=== PATIENT | male | born 1955 | race Caucasian/White ===

== ENCOUNTER → 2024-05-16 | Outpatient (CLI) | payer MEDICARE ==
--- NOTE | 2024-06-08 12:05 | MR ---
EXAMINATION TYPE: MR Prostate wo/w con DATE OF EXAM: 05/30/2024 1:37 PM COMPARISON: None. CLINICAL INDICATION: Male, 68 years old with history of R97.20 elevated PSA; Elevated PSA. TECHNIQUE: Multi-planar, multi-sequence imaging of the pelvis is performed prior to and following the uncomplicated administration of bolus intravenous gadolinium. CONTRAST: 11 Gadavist Interpretive Criteria: PI-RADS v2.1 SERUM PSA: 04-11-24 : 5.81 , 09-21-23 4.82 SURGICAL PATHOLOGY: No data available. FINDINGS: Prostatic dimensions: 4.1 x 4.8 x 3.4 cm. "Bullet" Volume:43.79 (PSA density=0.13 ng/mL/mL) CENTRAL GLAND (Central and Transition Zones/CZ+TZ) PERIPHERAL ZONE (PZ): Multiple bilateral, heterogenous appearing hypertrophic stromal nodules. Median lobe hypertrophy with protrusion into the base of the bladder. Left hip arthroplasty limits evaluation diffusion-weighted imaging. There is a area of prior DWI low ADC signal measuring 12 x 10 mm in the right mid gland ext ending to the anterior right peripheral zone. PI-RADS 4) Bilateral linear, indistinct wedgelike areas of low ADC, and low T2 signal, SEMINAL VESICLES (SV): Symmetric and unremarkable. PERIPROSTATIC TISSUES: Unremarkable. LYMPH NODES: No enlarged pelvic lymph node. REMAINING PELVIS: Bladder wall is within normal limits given distention. No abnormal free or organized intrapelvic fluid collection. No pathologic bowel dilation or mural thickening. Colonic diverticula are present. No hernia visualized OSSEOUS STRUCTURES: No suspicious osseous abnormality. IMPRESSION: Limited evaluation due to left hip arthroplasty with magnetic susceptibility artifact affecting the d iffusion-weighted sequences.. PI-RADS 4 lesion may be present in the right anterior mid gland periphe ral zone/central gland versus extruded BPH nodule. This area measures 12 x 10 mm.
== END | disposition home or self-care (01) ==
LOC: RADMRIMAIN 06:23
PROVIDERS: ATTEND Urology
DX: R97.20 Elevated prostate specific antigen [PSA] (principal); Z96.642 Presence of left artificial hip joint
CPT/HCPCS: 72197; A9585

== ENCOUNTER → 2024-06-21 | Outpatient (CLI) | payer MEDICARE ==
[2024-06-21 15:13] LABS: Basophils # (A) 0.05 X 10*3/uL (0.00-0.10); Basophils % (A) 0.6 %; Calcium 9.2 mg/dL (8.7-10.3); Carbon Dioxide 22.2 mmol/L (21.6-31.8); Chloride 108 mmol/L (96-109); Eosinophils # (A) 0.16 X 10*3/uL (0.04-0.35); Glucose 98 mg/dL (70-110); HCT 42.2 % (39.6-50.0); HGB 14.6 g/dL (13.0-17.0); Lymphocytes # (A) 2.11 X 10*3/uL (0.90-5.00); Lymphocytes % (A) 26.4 %; MCH 33.1 pg (27.0-32.0); MCHC 34.6 g/dL (32.0-37.0); MCV 95.7 FL (80.0-97.0); Mean Platelet Volume 9.3 FL (9.5-12.2); Monocytes # (A) 0.64 X 10*3/uL (0.20-1.00); NRBC Per 100 WBC 0 X 10*3/uL (0.00-0.01); Neutrophils # (A) 4.99 X 10*3/uL (1.80-7.70); Neutrophils % (A) 62.6 %; Platelet Count 301 X 10*3/uL (140-440); Potassium 5.5 mmol/L (3.5-5.5); RBC 4.41 X 10*6/uL (4.40-5.60); RDW 11.7 % (11.5-14.5); Sodium 141 mmol/L (135-145); WBC 7.98 X 10*3/uL (4.50-10.00)
[2024-06-21 16:21] LABS: Appearance,Urine Clear (Clear); Bilirubin,Urine Negative (Negative); Blood,Urine Negative (Negative); Color,Urine Yellow (Yellow); Ketones,Urine Negative (Negative); Nitrite,Urine Negative (Negative); PH, Urine 6.5; Specific Gravity,Urine 1.016 (1.001-1.030); Urobilinogen,Urine 0.2 E.U./DL
== END | disposition home or self-care (01) ==
LOC: LABWHC1 11:53
PROVIDERS: ATTEND Urology
DX: R97.20 Elevated prostate specific antigen [PSA] (principal); Z01.818 Encounter for other preprocedural examination
CPT/HCPCS: 36415; 80048; 81003; 85025; 87086

== ENCOUNTER 2024-06-28 13:12 | Day surgery (SDC) | payer MEDICARE ==
[~2024-06-28 13:12] MED LIST: LACTATED RINGERS 1,000 ML IV SCH
--- NOTE | 2024-06-28 14:09 | P.HPIHPCON ---
History of Present Illness H&P Date: 06/28/24 Chief Complaint: Elevated PSA This is a 68-year-old male with history of elevated PSA, underwent a prostate MRI that showed evidence of a PI-RADS 4 lesion along the right mid gland, discussed with him given this finding I do recommend proceeding with an MRI fusion biopsy of the prostate, aware of the risk which includes but not limited to bleeding, infection. He understood all the risk and agreed to proceed Consent for Procedure: I have explained the operation/procedure to the patient, including the risks, benefits, side effects, alternative therapies (including not receiving the proposed treatment or service), the likelihood of the patient achieving his/her goals, and potential recuperation problems for the procedure/sedation/analgesia, as well as any blood products, if indicated. I also explained to the patient the risks, benefits and side effects of the alternatives, as well as the risks related to not receiving the proposed procedure, care, treatment, or services. Past Medical History Past Medical History: Hyperlipidemia, Neurologic Disorder, Osteoarthritis (OA), Thyroid Disorder Additional Past Medical History / Comment(s): bad back L2-5. bone spurd, nerve pain. PSA elevated, MRI suspicious. borderline diabetes - watches diet BS affected by thyroid per pt can go up or down. History of Any Multi-Drug Resistant Organisms: None Reported Past Surgical History: Joint Replacement Additional Past Surgical History / Comment(s): orif left hip. total left hip, steroid inj to back. Past Anesthesia/Blood Transfusion Reactions: No Reported Reaction Additional Past Anesthesia/Blood Transfusion Reaction / Comment(s): no blood transfusions Smoking Status: Former smoker - Past Family History Father Additional Family Medical History / Comment(s): cirrohsis r/t blood transfusions. BPH Mother Family Medical History: Cancer, Pulmonary Embolus Additional Family Medical History / Comment(s): breast cancer Son(s) Additional Family Medical History / Comment(s): kidney issues from bad root canal. Sister(s) Additional Family Medical History / Comment(s): immune deficiencies- Medications and Allergies Home Medications Medication Instructions Recorded Confirmed Type Acetaminophen [Tylenol Arthritis] 650 mg PO DIRECTED PRN 06/23/24 06/23/24 History Atorvastatin [Lipitor] 40 mg PO HS 06/23/24 06/23/24 History Cbg Gummie 5mg 1 tab PO DIRECTED PRN 06/23/24 06/23/24 History Ciprofloxacin HCl [Cipro] 500 mg PO BID 06/23/24 06/23/24 History Gabapentin [Neurontin] 300 mg PO BID 06/23/24 06/23/24 History HYDROcodone/APAP 7.5-325MG [[place] 1 tab PO Q8H PRN 06/23/24 06/23/24 History 7.5-325] Ibuprofen 800 mg PO Q8H 06/23/24 06/23/24 History Levothyroxine Sodium [Synthroid] 125 mcg PO DAILY 06/23/24 06/23/24 History Allergies Allergy/AdvReac Type Severity Reaction Status Date / Time No Known Allergies Allergy Verified 06/23/24 13:05 Surgical - Exam - General no distress, no pain - Eyes normal ocular movement, no pale - ENT normal nares, normal mucosa - Respiratory normal expansion, normal respiratory effort - Abdomen Abdomen: soft, non tender Assessment and Plan Assessment: OR for MRI fusion biopsy of the prostate
[2024-06-28] MEDS: IV FLUID CONTINUATION 1,000 ML IV ONE (15:17)
[2024-06-28 15:23] VITALS: TEMP 97.1
[2024-06-28 15:31] LABS: Glucose,Whole Blood 90 mg/dL (70-110)
[2024-06-28] MEDS: GENTAMICIN 40 MG/ML 2 ML VIAL IM PRN (15:34)
[2024-06-28] MEDS ORDERED: PHENYLEPHRINE-0.9% NACL SYG 1,000 MCG/10 ML SYRINGE ONE (16:17)
[2024-06-28] MEDS ORDERED: LIDOCAINE 1% INJ 10MG/ML (20 ML MDV) ONE (16:17)
[2024-06-28] MEDS ORDERED: PROPOFOL 10 MG/ML 20 ML VIAL IV ONE (16:17)
--- NOTE | 2024-06-28 16:46 | P.OP ---
Date of Procedure: 06/28/24 Preoperative Diagnosis: Elevated PSA Postoperative Diagnosis: Same Procedure(s) Performed: MRI fusion biopsy of the prostate Anesthesia: MAC Surgeon: Von Medrano Estimated Blood Loss (ml): 1 Pathology: other (Prostate biopsies) Condition: stable Disposition: PACU Indications for Procedure: This is a 68-year-old male with history of elevated PSA, underwent a prostate MRI that showed evidence of a PI-RADS 4 lesion along the right mid gland, discussed with him given this finding I do recommend proceeding with an MRI fusion biopsy of the prostate, aware of the risk which includes but not limited to bleeding, infection. He understood all the risk and agreed to proceed Description of Procedure: The patient was taken to the operating room and placed in the left lateral decubitus position. The [employer] transrectal ultrasound probe was placed intra rectally. It was then placed within the stand of the [employer] MRI/TRUS Fusion for Prostate Biopsy system. The prostate was imaged in both the axial and sagittal planes. Using the Biopsy gun, 4 biopsies were obtained from the target lesion, there were was one lesions, . The remaining 12 biopsies of the peripheral zone were obtained utilizing a standard template. Once the procedure was completed, the ultrasound probe was removed. The patient tolerated the procedure well was taken to the recovery room stable condition
[2024-06-28 17:00] VITALS: PULSE 65; RESP 17
[2024-06-28 17:12] VITALS: BP 106/63
== END 2024-06-28 17:34 | disposition home or self-care (01) ==
LOC: OR 13:12
PROVIDERS: ATTEND Urology
DX: R97.20 Elevated prostate specific antigen [PSA]
CPT/HCPCS: 88305

== ENCOUNTER → 2024-08-25 | Outpatient (CLI) | payer MEDICARE ==
[2024-08-25 16:00] LABS: Basophils # (A) 0.03 X 10*3/uL (0.00-0.10); Basophils % (A) 0.4 %; Eosinophils # (A) 0.27 X 10*3/uL (0.04-0.35); Eosinophils % (A) 3.6 %; HCT 41.9 % (39.6-50.0); HGB 14.5 g/dL (13.0-17.0); Lymphocytes % (A) 29.6 %; MCH 33.3 pg (27.0-32.0); MCHC 34.6 g/dL (32.0-37.0); MCV 96.3 FL (80.0-97.0); Mean Platelet Volume 9.5 FL (9.5-12.2); Monocytes # (A) 0.78 X 10*3/uL (0.20-1.00); Monocytes % (A) 10.5 %; NRBC Per 100 WBC 0 X 10*3/uL (0.00-0.01); Neutrophils # (A) 4.13 X 10*3/uL (1.80-7.70); Neutrophils % (A) 55.6 %; Platelet Count 291 X 10*3/uL (140-440); RBC 4.35 X 10*6/uL (4.40-5.60); RDW 11.7 % (11.5-14.5); WBC 7.43 X 10*3/uL (4.50-10.00)
[2024-08-25 16:22] LABS: BUN/Creat Ratio 10.09 Ratio (12.00-20.00); Blood Urea Nitrogen 11.1 mg/dL (9.0-27.0); Glucose 85 mg/dL (70-110)
[2024-08-25 16:23] LABS: Calcium 8.9 mg/dL (8.7-10.3); Carbon Dioxide 23.7 mmol/L (21.6-31.8); Chloride 108 mmol/L (96-109); Potassium 4.6 mmol/L (3.5-5.5); Sodium 141 mmol/L (135-145)
[2024-08-25 18:27] LABS: Appearance,Urine Clear (Clear); Bilirubin,Urine Negative (Negative); Blood,Urine Negative (Negative); Color,Urine Yellow (Yellow); Ketones,Urine Negative (Negative); Nitrite,Urine Negative (Negative); PH, Urine 6.5; Specific Gravity,Urine 1.008 (1.001-1.030); Urobilinogen,Urine 0.2 E.U./DL
== END | disposition home or self-care (01) ==
LOC: LABPAT 12:20
PROVIDERS: ATTEND Urology
DX: Z01.812 Encounter for preprocedural laboratory examination (principal); C61 Malignant neoplasm of prostate
CPT/HCPCS: 36415; 80048; 81003; 85025; 86850; 86900; 86901; 87086

== ENCOUNTER 2024-09-02 05:38 | Day surgery (SDC) | payer MEDICARE ==
--- NOTE | 2024-09-01 15:28 | P.HPIHPCON ---
History of Present Illness H&P Date: 09/01/24 Chief Complaint: prostate cancer This is a 69-year-old male with history of [place] 7(4+3) prostate cancer. Discussed with him given this pathology I do recommend proceeding with treatments, options of robotic radical prostatectomy versus radiation therapy was discussed with him in details. Risk and benefit of each approach were discussed, he agreed to proceed with a robotic radical prostatectomy. Aware of the risk which includes but not limited to bleeding, infection, urinary incontinence, erectile dysfunction, injury to nearby organs. Risk of cancer recurrence, and the need for additional treatments and postoperative surveillance was discussed. He understood all risk and agreed to proceed Consent for Procedure: I have explained the operation/procedure to the patient, including the risks, benefits, side effects, alternative therapies (including not receiving the proposed treatment or service), the likelihood of the patient achieving his/her goals, and potential recuperation problems for the procedure/sedation/analgesia, as well as any blood products, if indicated. I also explained to the patient the risks, benefits and side effects of the alternatives, as well as the risks related to not receiving the proposed procedure, care, treatment, or services. Past Medical History Past Medical History: Cancer, Diabetes Mellitus, Hyperlipidemia, Neurologic Disorder, Osteoarthritis (OA), Thyroid Disorder Additional Past Medical History / Comment(s): bad back L2-5. bone spurs, nerve pain. borderline diabetes - watches diet, BS affected by thyroid per pt can go up or down. recent dx. prostate cancer History of Any Multi-Drug Resistant Organisms: None Reported Past Surgical History: Joint Replacement, Orthopedic Surgery Additional Past Surgical History / Comment(s): orif left hip. total left hip, steroid inj to back. MRI fusion prostate biopsy, hans. CTS, cubital tunnel release right elbow Past Anesthesia/Blood Transfusion Reactions: No Reported Reaction Additional Past Anesthesia/Blood Transfusion Reaction / Comment(s): no blood transfusions Smoking Status: Former smoker - Past Family History Father Additional Family Medical History / Comment(s): cirrohsis r/t blood transfusions. BPH Mother Family Medical History: Cancer, Pulmonary Embolus Additional Family Medical History / Comment(s): breast cancer Son(s) Additional Family Medical History / Comment(s): kidney issues from bad root canal. Sister(s) Additional Family Medical History / Comment(s): immune deficiencies- Medications and Allergies Home Medications Medication Instructions Recorded Confirmed Type Atorvastatin [Lipitor] 40 mg PO HS 06/23/24 08/29/24 History Cbg Gummie 5mg 1 tab PO DIRECTED PRN 06/23/24 08/29/24 History Gabapentin [Neurontin] 300 mg PO BID 06/23/24 08/29/24 History HYDROcodone/APAP 7.5-325MG [[place] 1 tab PO Q8H PRN 06/23/24 08/29/24 History 7.5-325] Ibuprofen 800 mg PO Q8H PRN 06/23/24 08/29/24 History Levothyroxine Sodium [Synthroid] 125 mcg PO DAILY 06/23/24 08/29/24 History buPROPion SR [Wellbutrin SR] 150 mg PO DAILY PRN 08/29/24 08/29/24 History Allergies Allergy/AdvReac Type Severity Reaction Status Date / Time No Known Allergies Allergy Verified 08/29/24 14:31 Surgical - Exam - General no distress, no pain - Eyes normal ocular movement, no pale - ENT normal nares, normal mucosa - Respiratory normal expansion, normal respiratory effort - Abdomen Abdomen: soft, non tender, no distended Assessment and Plan Assessment: OR for robotic radical prostatectomy with bilateral pelvic lymph node dissection
[2024-09-02 06:44] LABS: Glucose,Whole Blood 102 mg/dL (70-110)
[2024-09-02] MEDS: DEXAMETHASONE SOD PHOSPHATE 4 MG/ML 1 ML VIAL IV ONE (06:53)
[2024-09-02] MEDS: LACTATED RINGERS 1,000 ML IV SCH (06:53)
[2024-09-02] MEDS: ONDANSETRON 4 MG/2 ML VIAL IVP ONE (06:53)
[2024-09-02] MEDS: IV FLUID CONTINUATION 1,000 ML IV ONE ×3 (06:55→14:23)
[2024-09-02] MEDS: MIDAZOLAM 2 MG/2 ML VIAL IV PRN (07:10)
[2024-09-02] MEDS: fentaNYL (PF) 50 MCG/ML 2 ML AMP IVP PRN (07:10)
[2024-09-02] MEDS: HEPARIN SODIUM,PORCINE 5,000 UNIT/ML 1 ML VIAL SQ PRN (07:23)
[2024-09-02] MEDS ORDERED: NEOSTIGMINE 1 MG/ML 10 ML VIAL ONE (07:25)
[2024-09-02] MEDS ORDERED: KETAMINE HCL IN 0.9 % NACL 50 MG/5 ML SYRINGE ONE (07:25)
[2024-09-02] MEDS ORDERED: LIDOCAINE 1% INJ 10MG/ML (20 ML MDV) ONE (07:25)
[2024-09-02] MEDS ORDERED: fentaNYL (PF) 50 MCG/ML 2 ML AMP ONE (07:25)
[2024-09-02] MEDS ORDERED: ESMOLOL 100 MG/10 ML VIAL ONE (07:25)
[2024-09-02] MEDS ORDERED: SUCCINYLCHOLINE CHLORIDE 200 MG/10 ML VIAL IV ONE (07:25)
[2024-09-02] MEDS ORDERED: ROPIVACAINE 5 MG/ML 30 ML VIAL ONE (07:25)
[2024-09-02] MEDS ORDERED: SODIUM CHLORIDE 0.9% (PF) 10 ML VIAL ONE (07:25)
[2024-09-02] MEDS ORDERED: GLYCOPYRROLATE 0.2 MG/ML 2 ML VIAL ONE (07:25)
[2024-09-02] MEDS ORDERED: PROPOFOL 10 MG/ML 20 ML VIAL IV ONE (07:25)
[2024-09-02] MEDS ORDERED: HYDROmorphone (PF) 1 MG/ML ONE (07:25)
[2024-09-02] MEDS ORDERED: PHENYLEPHRINE-0.9% NACL SYG 1,000 MCG/10 ML SYRINGE ONE (07:25)
[2024-09-02] MEDS ORDERED: ROCURONIUM 10 MG/ML (5 ML VIAL) IV ONE (07:25)
[2024-09-02] MEDS ORDERED: WATER FOR INJECTION, STERILE 10 ML VIAL IV ONE (07:25)
[2024-09-02] MEDS ORDERED: ePHEDrine 50 MG/ML 1 ML VIAL ONE (07:25)
[2024-09-02] MEDS ORDERED: fentaNYL (PF) 50 MCG/ML 2 ML AMP IVP PRN (07:29)
[2024-09-02] MEDS: BUPIVACAINE (PF) 0.25% 30 ML VIAL SQ ONE (08:08)
[2024-09-02] MEDS: LACTATED RINGERS 1,000 ML IV ONE (09:24)
[2024-09-02] MEDS ORDERED: buPROPion SR 150 MG TABLET.ER PO PRN (12:16)
[2024-09-02] MEDS ORDERED: ONDANSETRON 4 MG/2 ML VIAL IVP PRN (12:17)
[2024-09-02] MEDS ORDERED: HYDROcodone/APAP 5-325MG 1 EACH TAB PO PRN (12:19)
--- NOTE | 2024-09-02 13:22 | P.ANPRN ---
Procedure Note - Anesthesia - Nerve Block Performed Bilateral Erector Spinae Single Time Out Performed: Yes (0710) Date of Procedure: 09/02/24 Procedure Start Time: 07:11 Procedure Stop Time: 07:15 Location of Patient: PreOp Indication: Acute Post-Operative Pain, Requested by Surgeon Specifically requested for management of pain by : Von Medrano Sedation Type: Sedate with meaningful contact maintained Preparation: Sterile Prep Position: Sitting Catheter: None Needle Types: Pajunk Needle Gauge: 21 Ultrasound used to visualize needle placement: Yes Ultrasound used to observe medication spread: Yes Injectate: 0.5% Ropivacaine (see comment for volume) (15cc+10cc nacl pf each side) Blood Aspirated: No Pain Paresthesia on Injection Noted: No Resistance on Injection: Normal Image Stored and Saved: Yes Events: Uneventful and Well Tolerated
[2024-09-02] MEDS: HYDROmorphone 0.5 MG/0.5 ML SYRINGE IVP PRN (13:40)
[2024-09-02] MEDS: HYDROmorphone 1 MG/ML 1 ML SYRINGE IVP PRN (15:20)
[2024-09-02] MEDS: HEPARIN SODIUM,PORCINE 5,000 UNIT/ML 1 ML VIAL SQ SCH (15:20)
[2024-09-02] MEDS: D5-0.45% NACL WITH KCL 20MEQ/L 1,000 ML IV SCH (16:03)
[2024-09-02] MEDS: KETOROLAC 15 MG/ML 1 ML VIAL IVP SCH (16:57)
[2024-09-02] MEDS: GABAPENTIN 300 MG CAP PO SCH (20:54)
[2024-09-02] MEDS: ATORVASTATIN 40 MG TAB PO SCH (20:54)
[2024-09-03] MEDS: LEVOTHYROXINE 125 MCG TAB PO SCH (05:38)
[2024-09-03 08:04] VITALS: RESP 19
[2024-09-03] MEDS: HYDROcodone/APAP 7.5-325MG 1 EACH TAB PO PRN (09:21)
[2024-09-03 13:02] VITALS: BP 123/72; PULSE 69; TEMP 98.9
--- NOTE | 2024-09-06 09:54 | P.OP ---
Date of Procedure: 09/02/24 Preoperative Diagnosis: Prostate cancer Postoperative Diagnosis: Same Procedure(s) Performed: Robotic assisted laparoscopic radical prostatectomy with bilateral pelvic lymph node dissection Implants: None Anesthesia: RADHAA Surgeon: Von Medrano Estimated Blood Loss (ml): 100 Pathology: other (Prostate, bilateral seminal vesicle, bilateral pelvic lymph node dissection) Condition: stable Disposition: PACU Indications for Procedure: This is a 69-year-old male with history of [place] 7(4+3) prostate cancer. Discussed with him given this pathology I do recommend proceeding with treatments, options of robotic radical prostatectomy versus radiation therapy was discussed with him in details. Risk and benefit of each approach were discussed, he agreed to proceed with a robotic radical prostatectomy. Aware of the risk which includes but not limited to bleeding, infection, urinary incontinence, erectile dysfunction, injury to nearby organs. Risk of cancer recurrence, and the need for additional treatments and postoperative surveillance was discussed. He understood all risk and agreed to proceed Description of Procedure: After preoperative antibiotics were started, the patient was taken to the operating room. Anesthesia was induced and the patient was placed in a supine position, with adequate padding of the pressure points, shoulders, back, legs and arms. He was then prepped and draped in the standard fashion. A critical pause was performed using two patient identifiers. A 16F toney catheter was placed to gravity drainage. I attempted to obtain pneumo-peritoneum with Veress needle, but was unable to obtain an adequate drop test to insufflate the peritoneal cavity. At this point a small incision was made supraumbilically and using the 5 mm Visiport access was obtained to the peritoneal cavity, abdomen was insufflated to to 20 mm Hg without complication, . Under direct vision a 8mm robotic ports was placed lateral to each rectus slightly below the camera port. The left iliac fossa 8mm port was placed. Next the 5 mm port was removed and exchanged for an 8 mm robotic trocar. The right entry level administrative assistant right iliac fossa 12mm port and right paramedian 5mm portwere placed. After the patient was placed in the trendelenberg position, the robot was then docked to the 8mm robotic ports and then each robotic arm and tower was checked in relation to the patient's legs and hands to avoid inadvertent compression. The peritoneal cavity was inspected. An inverted U-shaped incision began laterally to the left medial umbilical ligament and extended high across the midline to the right umbilical ligament. The limbs of the "U" extended to the level of the vasa on both sides. We next developed the preperitoneal space and the space of Retzius. Cautery was used to dissected the bladder away from the prostate. After the anterior bladder neck was incised and the bladder entered the the posterior bladder neck was exposed and the ureteral orifces identified. The posterior bladder neck was then incised and dissected away from the prostate. The vas and the seminal vesicles were now exposed and dissected to their insertions into the prostate and were not spared. The posterior layer of the Denonvillier's fascia was incised to enter cliff the plane between prostate and perirectal fat. Each lateral pedicle was controlled with vessel sealer, partial nerve preservation was performed bilaterally. The puboprostatic ligament was incised where it inserted into the apex of the prostate and a plane between urethra and dorsal venous complex developed to expose the anterior urethral surface. The anterior wall of the urethra was transected with the cut setting a few millimeters distal to the apex of the prostate. The dorsal vein was ligated using 3-0 V lock bilateral obturator and external iliac lymph node packets were carefully dissected after careful visualization of the hypogastric artery and obturator nerve. There was careful attention paid to hemostasis with judicious use of cautery. The urethrovesical anastomosis was performed . the posterior denovillers was reapproximated using 3-0 V lock. A 6 and 6 inch 3-0 V-Lock suture was used to anastomose the urethra and bladder, starting at the 6:00 posterior position. Mucosa was secured in every stitch, to ensure a mucosa to mucosa anastomosis. The stitch was regularly cinched and the anastomosis tightened. Care was taken to not violate the ureteral orifices. The Toney catheter was advanced, the bladder filled, and the anastomosis was tested, as described above. Anastomsis was watertight at 200 mL The periumbilical fascia was closed with 1-0-PDS suture in figure of 8 fashion. All ports were closed with a subcuticular 4-0 monocryl and Dermabond. Sponge, instrument, and needle counts were correct at the end of the case x2. All specimens including prostate and lymph nodes were sent to pathology for diagnosis and will be available in a week. The patient tolerated the surgery well and without complication. He awoke w ithout difficulty and was taken to the recovery room in stable condition
== END 2024-09-03 14:25 | disposition home or self-care (01) ==
LOC: OR 05:38 → 5NMEDONC 14:16 → OR 09-03 14:25
PROVIDERS: ATTEND Urology
DX: C61 Malignant neoplasm of prostate (principal); E78.5 Hyperlipidemia, unspecified; E07.9 Disorder of thyroid, unspecified; E11.9 Type 2 diabetes mellitus without complications; M19.90 Unspecified osteoarthritis, unspecified site; Z80.3 Family history of malignant neoplasm of breast; Z87.891 Personal history of nicotine dependence; Z79.890 Hormone replacement therapy; Z79.02 Long term (current) use of antithrombotics/antiplatelets; Z79.899 Other long term (current) drug therapy
CPT/HCPCS: 64999; 88307; 88309; 55866; 38571; J2250; J0330; J1644 ×2; J1100; J2710; J0690; J2405; J2003; J3010; J1171 ×2; J2795; J1885 ×2; J2704; J2371; J0665; J1805; J1596

== ENCOUNTER 2025-03-31 09:33 | Day surgery (SDC) | payer MEDICARE ==
[2025-03-31 09:55] VITALS: TEMP 97
[2025-03-31] MEDS: LACTATED RINGERS 1,000 ML IV SCH (10:03)
[2025-03-31] MEDS: IV FLUID CONTINUATION 1,000 ML IV ONE (10:04)
[2025-03-31 10:10] LABS: Glucose,Whole Blood 103 mg/dL (70-110)
[2025-03-31] MEDS ORDERED: PROPOFOL 10 MG/ML 20 ML VIAL IV ONE (10:16)
--- NOTE | 2025-03-31 10:41 | P.PCN ---
Date of Procedure: 03/31/25 Procedure(s) Performed: BRIEF HISTORY: Patient is a 69-year-old pleasant white male scheduled for an elective colonoscopy as a part of screening for colon cancer/positive Cologuard. PROCEDURE PERFORMED: Colonoscopy with snare polypectomy and Endo Clip placement. PREOPERATIVE DIAGNOSIS: Screening for colon cancer/positive Cologuard. IV sedation per Anesthesia. PROCEDURE: After informed consent was obtained, the patient, was brought into the endoscopy unit. IV sedation was administered by Anesthesia under continuous monitoring. Digital rectal examination was normal. Initially the Olympus CF-160 flexible video colonoscope was then inserted in the rectum, gradually advanced into the cecum without any difficulty. Careful examination was performed as the scope was gradually being withdrawn. Ileocecal valve and the appendiceal orifice were visualized and appeared normal. Prep was excellent. Mucosa of the cecum, ascending colon, appeared normal. The hepatic lesion there were 4 polyps measuring between 1 to 2 cm in size all which were removed by hot snare polypectomy. In the descending colon there was a 5 mm and 1 cm polyp removed by snare polypectomy. In the sigmoid colon there was a 3 cm pedunculated polyp removed by hot snare polypectomy. In the rectum there were 2 polyps measuring between 1 and 1.5 cm in size removed by snare polypectomy followed by Endo Clip placement as one of the polyp had some active oozing identified. Rest of the descending colon, sigmoid colon, and rectum appeared normal. Scattered sigmoid diverticulosis. Retroflexion was performed in the rectum and no lesions were seen. The patient tolerated the procedure well. IMPRESSION: 4 polyps in the hepatic flexure measuring between 1 cm to 2 cm in size all which were removed by hot snare polypectomy. 3 cm pedunculated sigmoid colon polyp status post snare polypectomy 2 polyps in the rectum measuring 1 cm and 1.5 cm status post polypectomy followed by Endo Clip placement 5 millimeter and 1 cm descending colon polyp status post snare polypectomy RECOMMENDATIONS: Findings of this examination were discussed with the patient as well as his family.. Is advised to follow-up with the biopsy results. Biopsy reveals adenoma he can have repeat colonoscopy in 3 years.
[2025-03-31 10:57] VITALS: BP 107/61; PULSE 78; RESP 18
== END 2025-03-31 11:32 | disposition home or self-care (01) ==
LOC: ORWHC2ENDO 09:33
PROVIDERS: ATTEND Internal Medicine Gastroenterology
DX: Z12.11 Encounter for screening for malignant neoplasm of colon (principal); D12.4 Benign neoplasm of descending colon; D12.3 Benign neoplasm of transverse colon; D12.5 Benign neoplasm of sigmoid colon; K62.1 Rectal polyp; C61 Malignant neoplasm of prostate; E78.5 Hyperlipidemia, unspecified; E11.9 Type 2 diabetes mellitus without complications; E07.9 Disorder of thyroid, unspecified; Z89.012 Acquired absence of left thumb; Z89.211 Acquired absence of right upper limb below elbow; Z79.890 Hormone replacement therapy; Z79.02 Long term (current) use of antithrombotics/antiplatelets; Z79.899 Other long term (current) drug therapy
CPT/HCPCS: 88305; 45385; J2704